=== PATIENT | female | born 1990 | race Hispanic/Latino ===

== ENCOUNTER 2016-05-06 11:08 | Emergency (ER) | payer OTHER ==
[~2016-05-06] VITALS: Ht 162.6 cm; Wt 81.2 kg
[2016-05-06 11:08] VITALS: BP 138/73
[2016-05-06] MEDS ORDERED: bcp (11:16)
[2016-05-06] MEDS ORDERED: NAPR500T PO (11:46)
[2016-05-06] MEDS ORDERED: PRED20TA PO (11:46)
== END 2016-05-06 11:58 | disposition home or self-care (01) ==
LOC: M ED 11:55
DX: S93.401A Sprain of unspecified ligament of right ankle, initial encounter (principal); X58.XXXA Exposure to other specified factors, initial encounter; Y92.89 Other specified places as the place of occurrence of the external cause; Y93.89 Activity, other specified; Y99.8 Other external cause status; J06.9 Acute upper respiratory infection, unspecified; L50.9 Urticaria, unspecified; Z79.3 Long term (current) use of hormonal contraceptives; F17.210 Nicotine dependence, cigarettes, uncomplicated; M41.9 Scoliosis, unspecified

== ENCOUNTER 2016-06-03 19:18 | Emergency (ER) | payer OTHER ==
[~2016-06-03] VITALS: Ht 162.6 cm; Wt 78.9 kg
[~2016-06-03 19:18] MED LIST: NAPR500T PO; PRED20TA PO; bcp
[2016-06-03] MEDS ORDERED: NEUR300C PO (20:08)
[2016-06-03 20:14] VITALS: BP 127/75
[2016-06-03] MEDS ORDERED: GABAPENTIN 300 MG CAP PO ONE (20:15)
== END 2016-06-03 20:28 | disposition home or self-care (01) ==
LOC: M ED 20:17
DX: R20.2 Paresthesia of skin (principal); Z79.3 Long term (current) use of hormonal contraceptives; M41.9 Scoliosis, unspecified

== ENCOUNTER → 2016-06-15 | Outpatient (CLI) | payer OTHER ==
[~2016-06-15] MED LIST changes: +NEUR300C PO
--- NOTE | 2016-06-16 06:26 | REP ---
CT BRAIN WITHOUT CONTRAST: 06/15/2016. Clinical history: Weakness left upper and lower extremity. There are no prior studies. Findings: Soft-tissue and bone windows are reviewed for each slice level. Ventricles are midline, symmetric and without dilatation or displacement. Posterolateral right frontal region shows a 5 x 4 mm dural calcification that may represent a small benign calcification or benign meningioma. There is no edema or mass effect associated with it. Basal ganglia are symmetric and normal. White matter tracts intact. Johnson-white junction differentiation well maintained. There are no other extra-axial lesions. Brainstem and cerebellum intact. Basal cisterns intact. Visualized mastoids and sinuses clear. The skull base and calvarium show no other finding. Impression: 1. No intracranial hemorrhage, acute infarct, edema or white matter tract abnormality. 2. 5 x 4 mm dural dense calcification suggesting a benign dural calcific deposit versus small meningioma. No mass effect locally or local edema. Follow up with routine MRI without and with contrast may be helpful. Signed by Stephen Mullins MD 06/16/2016 04:40 P
== END ==
LOC: M RAD 17:40
PROVIDERS: ATTEND Family Medicine
DX: R93.0 Abnormal findings on diagnostic imaging of skull and head, not elsewhere classified (principal); R29.898 Other symptoms and signs involving the musculoskeletal system

== ENCOUNTER → 2016-07-13 | Outpatient (CLI) | payer OTHER ==
--- NOTE | 2016-07-14 09:33 | REP ---
MR BRAIN WITHOUT AND WITH CONTRAST: HISTORY: Headache. CONTRAST: ProHance 16 mL. COMPARISON: CT 06/15/2016. There are no areas of abnormal signal intensity in the brain. There is no intraparenchymal hemorrhage, infarct, mass, or midline shift. There is no abnormal enhancement. The ventricular system is normal in appearance. There is no extracerebral collection. The sinuses are clear. IMPRESSION: There is no intracranial lesion. Signed by Willian Livingston MD 07/14/2016 09:55 A
== END ==
LOC: M RAD 16:51
PROVIDERS: ATTEND Family Medicine
DX: G93.9 Disorder of brain, unspecified (principal)

== ENCOUNTER 2017-03-11 15:40 | Emergency (ER) | payer OTHER ==
[2017-03-11 17:51] LABS: BASO % 0.2 % (0.0-1.0); EOS % 0.2 % (0.0-3.0); HEMATOCRIT 34.2 % (36.0-47.0); IMMATURE GRANULOCYTE # 0.1 10^3/uL (0-0); IMMATURE GRANULOCYTE % 0.7 % (0-0); LYMPH # 1.8 10^3/uL (1.5-6.5); LYMPH % 12.3 % (24.0-44.0); MEAN CORPUSCULAR HEMOGLOBIN 26.1 pg (27.0-33.0); MEAN CORPUSCULAR HGB CONC 32.2 g/dl (32.0-36.5); MONO # 0.7 10^3/uL (0.0-0.8); MONO % 4.6 % (0.0-5.0); NEUTROPHILS # 12.2 10^3/uL (1.8-7.7); PLATELET COUNT, AUTOMATED 263 10^3/uL (150-450); RED BLOOD COUNT 4.22 10^6/uL (4.00-5.40); RED CELL DISTRIBUTION WIDTH 13.1 % (11.5-14.5); WHITE BLOOD COUNT 14.9 10^3/uL (4.0-10.0)
[2017-03-11 18:01] LABS: CONTROL LINE HCG INT CTR LINE PRESENT; HCG, SERUM QUALITATIVE POSITIVE (NEGATIVE)
[2017-03-11 18:26] LABS: HCG, SERUM QUANTITATIVE 3553 MIU/ML
[2017-03-11 19:21] LABS: CHLAMYDIA DNA AMPLIFICATION POSITIVE (NEGATIVE); GC DNA AMPLIFICATION NEGATIVE (NEGATIVE)
[2017-03-11] MEDS: AZITHROMYCIN 250 MG TAB PO (20:24)
== END 2017-03-11 20:27 | disposition home or self-care (01) ==
LOC: M ED 15:40
DX: N72 Inflammatory disease of cervix uteri (principal); Z3A.23 23 weeks gestation of pregnancy; Z87.891 Personal history of nicotine dependence
CPT/HCPCS: 76811

== ENCOUNTER → 2017-03-23 | Outpatient (CLI) | payer OTHER ==
[2017-03-23 13:32] LABS: BASO % 0.2 % (0.0-1.0); EOS % 0.4 % (0.0-3.0); HEMATOCRIT 33.5 % (36.0-47.0); HEMOGLOBIN 10.9 g/dl (12.0-16.0); IMMATURE GRANULOCYTE % 0.6 % (0-3.0); LYMPH # 1.4 10^3/uL (1.5-6.5); LYMPH % 12.1 % (24.0-44.0); MEAN CORPUSCULAR HEMOGLOBIN 26.3 pg (27.0-33.0); MEAN CORPUSCULAR HGB CONC 32.5 g/dl (32.0-36.5); MEAN CORPUSCULAR VOLUME 80.7 fl (80.0-96.0); MONO # 0.6 10^3/uL (0.0-0.8); MONO % 4.9 % (0.0-5.0); NEUTROPHILS # 9.3 10^3/uL (1.8-7.7); NEUTROPHILS % 81.8 % (36.0-66.0); PLATELET COUNT, AUTOMATED 262 10^3/uL (150-450); RED BLOOD COUNT 4.15 10^6/uL (4.00-5.40); RED CELL DISTRIBUTION WIDTH 13.3 % (11.5-14.5); WHITE BLOOD COUNT 11.4 10^3/uL (4.0-10.0)
[2017-03-23 14:33] LABS: RUBELLA IgG QUALITATIVE IMMUNE (IMMUNE)
[2017-03-23 14:35] LABS: HBsAg Prenatal NEGATIVE (NEGATIVE)
[2017-03-23 15:04] LABS: HIV 1&2 SCREEN CENTAUR NEGATIVE (NEGATIVE)
[2017-03-23 15:04] LABS: HEPATITIS C VIRUS ABY INDEX < 0.0 INDEX (<0.8)
[2017-03-23 15:13] LABS: CHLAMYDIA DNA AMPLIFICATION NEGATIVE (NEGATIVE); GC DNA AMPLIFICATION NEGATIVE (NEGATIVE)
== END ==
LOC: M SMT 10:12
DX: Z36.89 Encounter for other specified antenatal screening (principal); Z3A.00 Weeks of gestation of pregnancy not specified
CPT/HCPCS: 86762

== ENCOUNTER → 2017-04-04 | Outpatient (CLI) | payer OTHER | LOC: M RAD 09:25 | DX: Z36.9 Encounter for antenatal screening, unspecified (principal); Z3A.27 27 weeks gestation of pregnancy | CPT/HCPCS: 76816 ==

== ENCOUNTER → 2017-04-20 | Outpatient (REF) | payer OTHER, MEDICAID | LOC: M LAB REF 12:59 | DX: Z34.83 Encounter for supervision of other normal pregnancy, third trimester (principal) ==

== ENCOUNTER → 2017-05-01 | Outpatient (CLI) | payer OTHER ==
[2017-05-01 14:26] LABS: GLUCOSE CHALLENGE TEST 1 HOUR 89 MG/DL (LESS THAN 140)
== END ==
LOC: M SMT 09:39
DX: Z34.83 Encounter for supervision of other normal pregnancy, third trimester (principal)
CPT/HCPCS: 82950

== ENCOUNTER → 2017-05-07 | Outpatient (CLI) | payer OTHER | LOC: M SMT 09:35 | DX: Z36.89 Encounter for other specified antenatal screening (principal); Z3A.31 31 weeks gestation of pregnancy | CPT/HCPCS: 76816 ==

== ENCOUNTER → 2017-06-12 | Outpatient (REF) | payer OTHER | LOC: M LAB REF 12:53 | DX: Z34.83 Encounter for supervision of other normal pregnancy, third trimester (principal) | CPT/HCPCS: 87081 ==

== ENCOUNTER 2017-07-07 04:48 | Inpatient (IN) | payer OTHER ==
[2017-07-07 08:29] LABS: HEMATOCRIT 38.1 % (36.0-47.0); HEMOGLOBIN 12.6 g/dl (12.0-15.5); MEAN CORPUSCULAR HGB CONC 33.1 g/dl (32.0-36.5); MEAN CORPUSCULAR VOLUME 81.6 fl (80.0-96.0); PLATELET COUNT, AUTOMATED 251 10^3/uL (150-450); RED BLOOD COUNT 4.67 10^6/uL (4.00-5.40); RED CELL DISTRIBUTION WIDTH 14.6 % (11.5-14.5); WHITE BLOOD COUNT 17.1 10^3/uL (4.0-10.0)
[2017-07-07] MEDS: LACTATED RINGER'S 1000 ML IV (08:51)
[2017-07-07] MEDS: LR 1,000 ML IV ×3 (08:52→19:49)
[2017-07-07] MEDS ORDERED: BUTORPHANOL 2 MG/ML INJ (J0595) As Ordered (15:51)
[2017-07-07] MEDS ORDERED: PROMETHAZINE INJ 25 MG/ML VIAL (J2550) As Ordered (15:51)
[2017-07-07] MEDS: PROMETHAZINE INJ 25 MG/ML VIAL (J2550) IV (15:59)
[2017-07-07] MEDS: BUTORPHANOL 2 MG/ML INJ (J0595) IV (15:59)
[2017-07-07] MEDS ORDERED: OXYTOCIN 30 UNITS IN 0.9% NaCl 500ML IV BAG (J2590) As Ordered (16:44)
[2017-07-07] MEDS ORDERED: FENTANYL 2MCG/ML ROPIVACAINE 0.2% IN 0.9% NACL 200ML IVBAG As Ordered (17:46)
[2017-07-07] MEDS: OXYTOCIN DRIP 30 UNITS in APPROPRIATE DILUENT 1 EA IV ×2 (18:31→20:25)
[2017-07-07] MEDS ORDERED: EPIDURAL/PCA KEYS XX (18:45)
[2017-07-07] MEDS ORDERED: FENTANYL/ROPIVACAINE/NACL BAG 200 ML EPIDURAL (18:45)
[2017-07-07] MEDS ORDERED: EPIDURAL COMMENT XX (18:45)
[2017-07-07] MEDS ORDERED: REFRIGERATOR IV KEYS XX (18:45)
[2017-07-07] MEDS ORDERED: ONDANSETRON 4MG/2ML VIAL (J2405) IV ×2 (18:45→20:30)
[2017-07-07] MEDS ORDERED: NALOXONE INJ 0.4 MG/1 ML VIAL (J2310) IV (18:45)
[2017-07-07] MEDS ORDERED: ePHEDrine SULFATE 25 MG/5 ML(5MG/ML) SYRINGE IV (18:45)
[2017-07-07] MEDS ORDERED: diphenhydrAMINE INJ 50MG/ML VIAL (J1200) IV (18:45)
[2017-07-07] MEDS ORDERED: LACTATED RINGER'S 1000 ML IV (18:45)
[2017-07-07] MEDS ORDERED: LR 1,000 ML IV (20:25)
[2017-07-07] MEDS ORDERED: ACETAMINOPHEN 500 MG TAB PO (20:30)
[2017-07-07] MEDS ORDERED: PROMETHAZINE 25 MG TAB PO (20:30)
[2017-07-07] MEDS ORDERED: RHOGAM 300 MCG (1500 IU) INJ (J2790) IM (20:30)
[2017-07-07] MEDS ORDERED: DOCUSATE SODIUM 100 MG CAP PO (20:30)
[2017-07-07] MEDS ORDERED: DIBUCAINE 1% OINTMENT 30GM TOP (20:30)
[2017-07-07] MEDS ORDERED: IBUPROFEN 800 MG TAB PO (20:30)
[2017-07-07] MEDS ORDERED: MEASLES,MUMPS,RUBELLA VACCINE INJ (MMR-II) (90707) SC (20:30)
[2017-07-08] MEDS: PRENATAL VITAMINS CHEWABLE TABLET PO (08:17)
[2017-07-09] MEDS: PRENATAL VITAMINS CHEWABLE TABLET PO (11:05)
== END 2017-07-09 14:55 | disposition home or self-care (01) | DRG 560 ==
LOC: M LDO 04:48 → M LDI 07:51 → M OBS 22:37
PROVIDERS: Obstetrics & Gynecology
PROC: 10E0XZZ Delivery of Products of Conception, External Approach (ICD-10-PCS; principal; 2017-07-07)
PROC: 0KQM0ZZ Repair Perineum Muscle, Open Approach (ICD-10-PCS; 2017-07-07)
PROC: 10907ZC Drainage of Amniotic Fluid, Therapeutic from Products of Conception, Via Natural or Artificial Opening (ICD-10-PCS; 2017-07-07)
DX: O48.0 Post-term pregnancy (principal); O70.1 Second degree perineal laceration during delivery; Z37.0 Single live birth; Z3A.40 40 weeks gestation of pregnancy

== ENCOUNTER 2017-09-26 20:20 | Emergency (ER) | payer OTHER | END 2017-09-27 00:49 | disposition home or self-care (01) | LOC: M ED 09-27 00:49 | DX: R20.2 Paresthesia of skin (principal); T88.7XXA Unspecified adverse effect of drug or medicament, initial encounter; Y92.9 Unspecified place or not applicable; Y93.9 Activity, unspecified; Z97.5 Presence of (intrauterine) contraceptive device; Z79.899 Other long term (current) drug therapy | CPT/HCPCS: 70450 ==

== ENCOUNTER → 2019-10-22 | Outpatient (REF) | payer OTHER ==
[~2019-10-22] MED LIST changes: +AUGM875T28 PO; +FLUO10CA16 PO; +HYDR50TA70 PO; +IBUP-1114 PO; +IBUP80TA PO; +LIDO2SOL17 PO; +MAPA500T2 PO; +NAPR-837 PO; -NAPR500T PO; +PRENTAB9 PO; +TOPI25TA10; +VITA1CAP25 PO
[2019-10-22 15:19] LABS: APPEARANCE, URINE HAZY (CLEAR); BACTERIA, URINE AUTO NEGATIVE (NEGATIVE); BILIRUBIN, URINE AUTO NEGATIVE (NEGATIVE); BLOOD, URINE BLOOD NEGATIVE (NEGATIVE); COLOR, URINE YELLOW (YELLOW); GLUCOSE, URINE (UA) AUTO NEGATIVE (NEGATIVE); KETONE, URINE AUTO NEGATIVE (NEGATIVE); LEUKOCYTE ESTERASE, URINE AUTO 3+ (NEGATIVE); NITRITE, URINE AUTO NEGATIVE (NEGATIVE); PROTEIN, URINE AUTO NEGATIVE (NEGATIVE); RBC, URINE AUTO 1 /HPF (0-3); SPECIFIC GRAVITY URINE AUTO 1.016 (1.002-1.035); SQUAMOUS EPITHELIAL CELL UR AU 8 /HPF (0-6); UROBILINOGEN, URINE AUTO 0.2 mg/dL (0.0-2.0); WBC, URINE AUTO 19 /HPF (0-3)
[2019-10-22 19:08] LABS: BASO # 0.1 10^3/uL (0.0-0.2); BASO % 0.7 % (0.0-1.0); EOS # 0.1 10^3/uL (0.0-0.5); EOS % 1.1 % (0.0-3.0); HEMATOCRIT 41.4 % (36.0-47.0); HEMOGLOBIN 13.1 g/dl (12.0-15.5); LYMPH # 2.2 10^3/uL (1.5-5.0); LYMPH % 28.6 % (24.0-44.0); MEAN CORPUSCULAR HEMOGLOBIN 26.5 pg (27.0-33.0); MEAN CORPUSCULAR HGB CONC 31.6 g/dl (32.0-36.5); MEAN CORPUSCULAR VOLUME 83.8 fl (80.0-96.0); MONO # 0.5 10^3/uL (0.0-0.8); MONO % 7.1 % (0.0-5.0); NEUTROPHILS # 4.7 10^3/uL (1.5-8.5); NEUTROPHILS % 62.2 % (36.0-66.0); PLATELET COUNT, AUTOMATED 266 10^3/uL (150-450); RED BLOOD COUNT 4.94 10^6/uL (4.00-5.40); WHITE BLOOD COUNT 7.6 10^3/uL (4.0-10.0)
[2019-10-22 19:27] LABS: ALBUMIN 3.6 GM/DL (3.2-5.2); ALT/SGPT 15 U/L (12-78); BILIRUBIN,TOTAL 0.4 MG/DL (0.2-1.0); BLOOD UREA NITROGEN 11 MG/DL (7-18); CARBON DIOXIDE LEVEL 27 MEQ/L (21-32); CHLORIDE LEVEL 107 MEQ/L (98-107); CHOLESTEROL LEVEL 176 MG/DL (<200); CREATININE FOR GFR 0.78 MG/DL (0.55-1.30); GLOMERULAR FILTRATION RATE > 60.0 (>60); GLUCOSE, FASTING 84 MG/DL (70-100); HDL CHOLESTEROL 42 MG/DL (>40); LDL CHOLESTEROL 113 MG/DL (<100); NON-HDL-C 134 MG/DL; POTASSIUM SERUM 4.2 MEQ/L (3.5-5.1); SODIUM LEVEL 138 MEQ/L (136-145); TOTAL PROTEIN 7.1 GM/DL (6.4-8.2); TRIGLYCERIDES LEVEL 107 MG/DL (<150)
[2019-10-22 19:29] LABS: TOTAL 25(OH) VITAMIN D 13.2 NG/ML (30.0-100.0)
[2019-10-22 19:44] LABS: HEMOGLOBIN A1c 5.4 %
== END ==
LOC: M LAB REF 10:15
PROVIDERS: ATTEND Nurse Practitioner Family
DX: Z00.01 Encounter for general adult medical examination with abnormal findings (principal); Z13.9 Encounter for screening, unspecified; G47.00 Insomnia, unspecified; R07.9 Chest pain, unspecified; F41.8 Other specified anxiety disorders

== ENCOUNTER 2019-11-29 23:24 | Emergency (ER) | payer OTHER ==
[~2019-11-29] VITALS: Ht 162.6 cm; Wt 89.0 kg
[2019-11-29 23:24] VITALS: BP 103/58
[~2019-11-29 23:24] MED LIST changes: -AUGM875T28 PO; -FLUO10CA16 PO; -HYDR50TA70 PO; -IBUP80TA PO; -LIDO2SOL17 PO; -VITA1CAP25 PO
[2019-11-29] MEDS ORDERED: HYDR50TA70 PO (23:38)
[2019-11-29] MEDS ORDERED: VITA1CAP25 PO (23:38)
[2019-11-29] MEDS ORDERED: FLUO10CA16 PO (23:38)
[2019-11-30] MEDS ORDERED: KETOROLAC TROMETHAMINE 10 MG TAB PO ONE (00:30)
[2019-11-30] MEDS ORDERED: AUGMENTIN 875 MG TAB PO ONE (00:30)
[2019-11-30] MEDS ORDERED: LIDOCAINE VISCOUS 2% SOLN 15ML UDC SSP ONE (00:30)
[2019-11-30] MEDS ORDERED: LIDO2SOL17 PO (00:34)
[2019-11-30] MEDS ORDERED: IBUP80TA PO (00:34)
[2019-11-30] MEDS ORDERED: AUGM875T28 PO (00:34)
== END 2019-11-30 01:05 | disposition home or self-care (01) ==
LOC: M ED 23:24
DX: K04.7 Periapical abscess without sinus (principal); K08.439 Partial loss of teeth due to caries, unspecified class; F32.9 Major depressive disorder, single episode, unspecified

== ENCOUNTER 2021-09-12 13:43 | Emergency (ER) | payer OTHER ==
[~2021-09-12] VITALS: Ht 162.6 cm; Wt 97.4 kg
[~2021-09-12 13:43] MED LIST changes: +AUGM875T28 PO; +FLUO10CA18 PO; +HYDR50TA70 PO; +IBUP80TA PO; +LIDO2SOL17 PO; +VITA1CAP25 PO
[2021-09-12 15:41] LABS: BASO # 0.1 10^3/uL (0.0-0.2); BASO % 0.6 % (0.0-1.0); EOS # 0.1 10^3/uL (0.0-0.5); HEMATOCRIT 41.2 % (36.0-47.0); HEMOGLOBIN 13.1 g/dl (12.0-15.5); LYMPH # 2.4 10^3/uL (1.5-5.0); LYMPH % 29.5 % (24.0-44.0); MEAN CORPUSCULAR HEMOGLOBIN 26.5 pg (27.0-33.0); MEAN CORPUSCULAR HGB CONC 31.8 g/dl (32.0-36.5); MEAN CORPUSCULAR VOLUME 83.4 fl (80.0-96.0); MONO # 0.4 10^3/uL (0.0-0.8); MONO % 5.3 % (2.0-8.0); NEUTROPHILS # 5.2 10^3/uL (1.5-8.5); NEUTROPHILS % 63.2 % (36.0-66.0); RED BLOOD COUNT 4.94 10^6/uL (4.00-5.40); WHITE BLOOD COUNT 8.3 10^3/uL (4.0-10.0)
[2021-09-12 16:23] LABS: ALBUMIN 3.7 GM/DL (3.2-5.2); ALT/SGPT 21 U/L (12-78); BILIRUBIN,DIRECT < 0.1 MG/DL (0.0-0.2); BILIRUBIN,TOTAL 0.5 MG/DL (0.2-1.0); BLOOD UREA NITROGEN 7 MG/DL (7-18); CALCIUM LEVEL 9.3 MG/DL (8.5-10.1); CARBON DIOXIDE LEVEL 24 MEQ/L (21-32); CHLORIDE LEVEL 110 MEQ/L (98-107); CREATININE FOR GFR 0.72 MG/DL (0.55-1.30); FREE T4 0.77 NG/DL (0.76-1.46); GLOMERULAR FILTRATION RATE > 60.0 (>60); GLUCOSE, FASTING 83 MG/DL (70-100); LIPASE 119 U/L (73-393); NT-PRO BNP 35 PG/ML (<125); POTASSIUM SERUM 4.6 MEQ/L (3.5-5.1); SODIUM LEVEL 141 MEQ/L (136-145); TOTAL PROTEIN 7.4 GM/DL (6.4-8.2)
[2021-09-12] MEDS ORDERED: ISOVUE-370 76% 100ML VIAL As Ordered ONE (16:34)
[2021-09-12 17:21] LABS: CK-MB VALUE MASS < 1.0 NG/ML (<3.6); CPK CREATINE PHOSPHOKINASE 159 U/L (26-192); MB/CK RELATIVE INDEX 0.63 (< OR =4)
[2021-09-12 18:00] VITALS: BP 126/67
== END 2021-09-12 18:07 | disposition home or self-care (01) ==
LOC: M ED 13:43
DX: F43.0 Acute stress reaction (principal); F41.9 Anxiety disorder, unspecified; F32.9 Major depressive disorder, single episode, unspecified
CPT/HCPCS: 71045; 71275; 80048; 80076; 82550; 82553; 83690; 83880; 84439; 84443; 85025; 85379; 93005; 93041; 94760; 99284; Q9967